=== PATIENT | female | born 1985 | race Two or more races ===

== ENCOUNTER 2016-03-15 14:15 | Emergency (ER) | payer OTHER ==
[2016-03-15] MEDS ORDERED: ACETAMINOPHEN 325 MG TABLET (FP) PO ONE (14:24)
[2016-03-15 14:31] VITALS: BP 137/72; PULSE 136; TEMP 103; BMI 23.3
== END 2016-03-15 16:12 | disposition left against medical advice (07) ==
LOC: JERFT 14:15 → JER 14:15 → JERFT 16:12
DX: Z53.21 Procedure and treatment not carried out due to patient leaving prior to being seen by health care provider (principal)
CPT/HCPCS: 99281-25

== ENCOUNTER 2019-12-10 18:15 | Emergency (ER) | payer SELFPAY ==
[2019-12-10 18:26] VITALS: BP 145/87; PULSE 73; TEMP 97.9; BMI 20.5
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
== END 2019-12-10 20:06 | disposition home or self-care (01) ==
LOC: JERFT 18:15
DX: L03.011 Cellulitis of right finger (principal)
CPT/HCPCS: 87070; 87186; 87205; 99282-25

== ENCOUNTER 2020-03-01 20:09 | Emergency (ER) | payer OTHER ==
[2020-03-01 20:30] VITALS: BMI 20.6
[2020-03-01] MEDS ORDERED: MAG HYDROX/AL HYDROX/SIMETH 30 ML UNIT-DOSE CUP PO ONE (21:21)
[2020-03-01] MEDS ORDERED: MAG HYDROX/AL HYDROX/SIMETH 30 ML UNIT-DOSE CUP ONE (21:36)
[2020-03-01 22:16] LABS: MCHC 34.2 g/dl (32.0-36.0); MEAN CELL VOLUME 81.9 fl (80-96); MEAN PLT VOLUME 8.7 fl (7.5-11.1); PLATELET COUNT 310 K/MM3 (134-434); RBC 4.28 M/mm3 (3.60-5.2); RDW 14.5 % (11.6-15.6)
[2020-03-01 22:30] LABS: CHLORIDE 108 mmol/L (98-107); POTASSIUM 3.7 mmol/L (3.5-5.1); SODIUM 140 mmol/L (136-145)
[2020-03-01 22:32] LABS: ALBUMIN 3.8 g/dl (3.4-5.0); ANION GAP 6 MMOL/L (8-16); CALCIUM 8.6 mg/dL (8.5-10.1); CO2 26 mmol/L (21-32)
[2020-03-01 22:33] LABS: GLUCOSE,RANDOM 102 mg/dL (74-106)
[2020-03-01 22:35] LABS: SGPT/ALT 21 U/L (13-61)
[2020-03-01 22:36] LABS: CREATININE 0.6 mg/dL (0.55-1.3); SGOT/AST 14 U/L (15-37)
[2020-03-01 22:37] LABS: BILIRUBIN,TOTAL 0.5 mg/dL (0.2-1)
[2020-03-01 22:38] LABS: ALK PHOS 100 U/L (45-117)
[2020-03-01 23:04] VITALS: BP 132/81; PULSE 83; TEMP 98.8
== END 2020-03-01 23:03 | disposition home or self-care (01) ==
LOC: JER 20:09
DX: R07.9 Chest pain, unspecified (principal); M79.602 Pain in left arm
CPT/HCPCS: 36415; 71046-TC-FY; 80053; 82550; 84484; 84703; 85027; 93005; 93010; 99285-25

== ENCOUNTER 2024-02-29 08:07 | Inpatient (IN) | payer BC ==
[2024-02-29 09:49] VITALS: BMI 25.2
[2024-02-29] MEDS ORDERED: AMPICILLIN SODIUM 2 GM VIAL ONE (10:37)
[2024-02-29] MEDS: AMPICILLIN - 2 GM in SODIUM CHLORIDE 100 ML IVPB ONE (10:45)
[2024-02-29] MEDS: ELECTROLYTE-148 SOLN 1,000 ML IV SCH (10:45)
[2024-02-29] MEDS: MISOPROSTOL 25 MCG TABLET (COMPOUNDED BY PHARMACY) BUC ONE (11:56)
[2024-02-29] MEDS ORDERED: AMPICILLIN SODIUM 1 GM VIAL ONE ×2 (14:42→18:32)
[2024-02-29] MEDS: AMPICILLIN - 1 GM in SODIUM CHLORIDE 100 ML IVPB SCH (14:44)
[2024-02-29] MEDS ORDERED: OXYTOCIN 30 UNITS in 0.9% NS 30 UNIT/500 ML INFUS.BAG IVPB ONE (15:13)
[2024-02-29] MEDS: OXYTOCIN 30 UNITS in 0.9% NS 30 UNIT/500 ML INFUS.BAG IVPB SCH (15:16)
[2024-02-29] MEDS ORDERED: PROMETHAZINE HCL 25 MG/1 ML VIAL ONE (23:04)
[2024-02-29] MEDS ORDERED: BUTORPHANOL TARTRATE 1 MG/ML VIAL ONE (23:04)
[2024-02-29] MEDS: BUTORPHANOL TARTRATE 1 MG/ML VIAL IVPB ONE (23:10)
[2024-02-29] MEDS: PROMETHAZINE HCL 25 MG/1 ML VIAL IVPB ONE (23:10)
[2024-02-29] MEDS ORDERED: OXYTOCIN 20 UNITS in 0.9% NS 20 UNIT/1,000 ML INFUS.BAG IV ONE (23:29)
[2024-02-29] MEDS ORDERED: LIDOCAINE HCL 1% PRESERVATIVE FREE - 30ML VIAL ONE (23:29)
[2024-03-01] MEDS ORDERED: METHYLERGONOVINE MALEATE 0.2 MG/1 ML AMP IM PRN (07:53)
[2024-03-01] MEDS ORDERED: WITCH HAZEL 50% (TUCKS) 40 PAD/JAR PAD TP PRN (07:53)
[2024-03-01] MEDS ORDERED: IBUPROFEN 600 MG TABLET (FP) PO PRN (07:53)
[2024-03-01] MEDS ORDERED: BENZOCAINE 20% 57 GM BOTTLE TP PRN (07:53)
[2024-03-01] MEDS ORDERED: oxyCODONE HCL 5 MG TABLET PO PRN (07:53)
[2024-03-01] MEDS ORDERED: ACETAMINOPHEN 325 MG TABLET (FP) PO PRN (07:53)
[2024-03-01] MEDS ORDERED: BISACODYL 10 MG SUPP.RECT RC PRN (07:53)
[2024-03-01] MEDS ORDERED: BENZOCAINE 28 GM HEMORRHOIDAL OINTMENT TP PRN (07:53)
[2024-03-01] MEDS ORDERED: OXYTOCIN 20 UNITS in 0.9% NS 20 UNIT/1,000 ML INFUS.BAG IV SCH (08:00)
[2024-03-01 09:24] VITALS: RESP 18
[2024-03-02 07:49] LABS: BASO % 0.6 % (0-2.0); EOS % 1.1 % (0-4.5); HEMATOCRIT 29.3 % (32.4-45.2); HEMOGLOBIN 10.4 GM/dL (10.7-15.3); LYMPH % 15.8 % (8-40); MCH 33.7 pg (25.7-33.7); MCHC 35.4 g/dl (32.0-36.0); MEAN CELL VOLUME 95.3 fl (80-96); MEAN PLT VOLUME 8.2 fl (7.5-11.1); MONO % 8.2 % (3.8-10.2); NEUT % 74.3 % (42.8-82.8); PLATELET COUNT 211 10^3/uL (134-434); RBC 3.08 M/mm3 (3.60-5.2); RDW 13.8 % (11.6-15.6); WHITE BLOOD COUNT 8.2 K/mm3 (4.0-10.0)
[2024-03-02 10:35] VITALS: BP 115/70; PULSE 70; TEMP 98
[2024-03-02] MEDS ORDERED: SENNOSIDES/DOCUSATE COMBO (SENNA PLUS) TABLET (UD) PO PRN (22:00)
== END 2024-03-02 13:20 | disposition home or self-care (01) | DRG 807 ==
LOC: JLDR 08:07 → J3W 03-01 03:05
PROVIDERS: ADMIT Specialist; ATTEND Obstetrics & Gynecology
PROC: 10E0XZZ Delivery of Products of Conception, External Approach (ICD-10-PCS; principal; 2024-03-01)
PROC: 0HQ9XZZ Repair Perineum Skin, External Approach (ICD-10-PCS; 2024-03-01)
DX: O99.824 Streptococcus B carrier state complicating childbirth (principal); O70.0 First degree perineal laceration during delivery; Z37.0 Single live birth; Z3A.38 38 weeks gestation of pregnancy
CPT/HCPCS: 36415; 59409; 85025; 86762; 86850; 86900; 86901; 87517; 93970-TC